=== PATIENT | female | born 1950 | race Asian ===

== ENCOUNTER 2022-04-11 20:30 | Inpatient (IN) ==
[2022-04-11] MEDS ORDERED: SODIUM CHLORIDE 0.9% 1,000 ML IV STA (21:03)
[2022-04-11 22:08] LABS: Basophils % 0.3 % (0.0-0.8); Hematocrit 39.1 VOL% (35.7-47.0); Hemoglobin 12.3 GM/DL (12.0-16.0); Immature Granulocytes % 0.2 %; Immature Granulocytes Absolute 0.01 #; Lymphocytes # 0.9 10*3/uL (1.4-4.0); Lymphocytes % 15.2 % (21.3-54.2); Mean Corpuscular HGB Conc 31.5 GM/DL (32-36); Mean Corpuscular Volume 90.5 FL (87-102); Mean Platelet Volume 10.6 FL (9.6-12.0); Monocytes # 0.5 10*3/uL (0.11-0.8); Monocytes % 8.2 % (1.7-12.7); Neutrophils % 76.1 % (38.7-73.9); Platelet Count 165 T/CUMM (130-400); Red Blood Count 4.32 MC/CUMM (3.8-5.5); Red Cell Distribution Width 13.8 % (9.3-17.3); White Blood Count 6.1 T/CUMM (4-12)
[2022-04-11 22:17] LABS: INR 1.1; PT Patient Result 12.5 SECS (10.1-12.1); Partial Thromboplastin Time 34.5 SECS (23.7-32.9)
[2022-04-11 22:33] LABS: Alanine Aminotransferase 30 U/L (13-56); Albumin 3.3 G/DL (3.4-5.0); Alkaline Phosphatase 61 U/L (45-117); Aspartate Amino Transferase 36 U/L (0-37); Bilirubin,Total < 0.39 MG/DL (0.20-1.00); Blood Urea Nitrogen 13 MG/DL (7-18); Calcium 8.4 MG/DL (8.5-10.1); Carbon Dioxide 30 MMOL/L (21-32); Chloride 104 MMOL/L (98-107); Glucose 124 MG/DL (74-106); Osmolality,Calculated 279.4 MOS/KG (273-304); Potassium 3.5 MMOL/L (3.5-5.1); Sodium 140 MMOL/L (136-145); Total Protein 7.5 G/DL (6.4-8.2)
[2022-04-11] MEDS ORDERED: ONDANSETRON 4 MG/2 ML VIAL ONE (23:44)
[2022-04-11] MEDS ORDERED: PROMETHAZINE 25 MG/1 ML VIAL IM PRN (23:52)
[2022-04-11] MEDS ORDERED: ONDANSETRON 4 MG/2 ML VIAL IV PRN (23:52)
[2022-04-12] MEDS: SODIUM CHLORIDE 0.9% 1,000 ML IV SCH ×4 (06:00→21:10)
[2022-04-12 07:19] LABS: Mucus,Urine Occasional /LPF (Occasional); RBC,Urine 7 /HPF (0-4); Squamous Epithelial Cell,Urine Occasional /HPF (0-10)
[2022-04-12 07:21] LABS: Glucose,Urine (UA) Negative (Negative); Ketones,Urine 5 mg/dL (Negative); Nitrite,Urine Negative (Negative); Protein,Urine Negative (Negative); Urine Appearance Clear (Clear); Urine Color Yellow (Yellow); Urine Specific Gravity 1.031 (1.001-1.035)
[2022-04-12 07:22] LABS: Bilirubin,Urine Negative (Negative); Blood, Urine Small mg/dL (Negative); Urine Urobilinogen < 2.0 eU/dL (<2.0)
[2022-04-12] MEDS ORDERED: GLUCAGON 1 MG VIAL IM PRN (07:42)
[2022-04-12] MEDS ORDERED: DEXTROSE 10% 250 ML BAG IV PRN (07:42)
[2022-04-12] MEDS ORDERED: NON-FORMULARY MEDICATION (Omeprazole 40 mg capsule,delayed release(DR/EC)) PO SCH (08:00)
[2022-04-12 09:07] LABS: Basophils % 0.1 % (0.0-0.8); Hematocrit 38.3 VOL% (35.7-47.0); Hemoglobin 12.3 GM/DL (12.0-16.0); Immature Granulocytes % 0.3 %; Immature Granulocytes Absolute 0.02 #; Lymphocytes # 1.4 10*3/uL (1.4-4.0); Lymphocytes % 19.5 % (21.3-54.2); Mean Corpuscular HGB Conc 32.1 GM/DL (32-36); Mean Corpuscular Volume 88.5 FL (87-102); Mean Platelet Volume 10.8 FL (9.6-12.0); Monocytes # 0.8 10*3/uL (0.11-0.8); Neutrophils % 69.1 % (38.7-73.9); Platelet Count 148 T/CUMM (130-400); Red Blood Count 4.33 MC/CUMM (3.8-5.5); Red Cell Distribution Width 13.6 % (9.3-17.3); White Blood Count 6.9 T/CUMM (4-12)
[2022-04-12 09:28] LABS: Alanine Aminotransferase 29 U/L (13-56); Alkaline Phosphatase 52 U/L (45-117); Aspartate Amino Transferase 36 U/L (0-37); Bilirubin,Total < 0.39 MG/DL (0.20-1.00); Blood Urea Nitrogen 9 MG/DL (7-18); Carbon Dioxide 26 MMOL/L (21-32); Chloride 105 MMOL/L (98-107); Glucose 174 MG/DL (74-106); Osmolality,Calculated 277.7 MOS/KG (273-304); Potassium 3.3 MMOL/L (3.5-5.1); Sodium 138 MMOL/L (136-145); Total Protein 7.5 G/DL (6.4-8.2)
[2022-04-12] MEDS: GABAPENTIN 100 MG CAPSULE PO SCH ×3 (10:35→20:33)
[2022-04-12] MEDS: ENALAPRIL 5 MG TABLET PO SCH (10:35)
[2022-04-12] MEDS: DOCUSATE SODIUM 100 MG CAPSULE PO SCH ×2 (10:35→20:33)
[2022-04-12] MEDS: APIXABAN 5 MG TABLET PO SCH ×2 (10:35→20:34)
[2022-04-12] MEDS: PANTOPRAZOLE 40 MG TABLET PO SCH (10:35)
[2022-04-12] MEDS: INSULIN REGULAR 100 UNIT/ML SUBCUT SCH ×3 (11:46→23:04)
[2022-04-12] MEDS ORDERED: hydrALAZINE 20 MG/1 ML VIAL IV PRN (13:10)
[2022-04-12] MEDS: cefTRIAXone 1,000 MG in SODIUM CHLORIDE 0.9% 100 ML IV SCH (13:34)
[2022-04-12] MEDS: OSELTAMIVIR 75 MG CAPSULE PO SCH ×2 (14:03→21:08)
[2022-04-12] MEDS: BENZONATATE 100 MG CAPSULE PO SCH ×2 (15:52→20:34)
[2022-04-12] MEDS: ACETAMINOPHEN 325 MG TABLET PO PRN (20:34)
[2022-04-13] MEDS: SODIUM CHLORIDE 0.9% 1,000 ML IV SCH ×3 (04:45→18:04)
[2022-04-13 05:34] LABS: Calcium 7.7 MG/DL (8.5-10.1); Osmolality,Calculated 278.5 MOS/KG (273-304); Potassium 3.1 MMOL/L (3.5-5.1)
[2022-04-13] MEDS: INSULIN REGULAR 100 UNIT/ML SUBCUT SCH ×4 (08:34→21:20)
[2022-04-13] MEDS: PANTOPRAZOLE 40 MG TABLET PO SCH (08:35)
[2022-04-13] MEDS: DOCUSATE SODIUM 100 MG CAPSULE PO SCH ×2 (08:35→20:45)
[2022-04-13] MEDS: BENZONATATE 100 MG CAPSULE PO SCH ×3 (08:35→20:45)
[2022-04-13] MEDS: GABAPENTIN 100 MG CAPSULE PO SCH ×3 (08:36→20:45)
[2022-04-13] MEDS ORDERED: POTASSIUM CHLORIDE RIDER 10 MEQ/100 ML PREMIX IV PRN (08:55)
[2022-04-13] MEDS ORDERED: POTASSIUM CHLORIDE 20 MEQ TABLET PO PRN (08:55)
[2022-04-13] MEDS: APIXABAN 5 MG TABLET PO SCH ×2 (09:30→20:45)
[2022-04-13] MEDS: OSELTAMIVIR 75 MG CAPSULE PO SCH ×2 (09:30→20:45)
[2022-04-13] MEDS: ENALAPRIL 5 MG TABLET PO SCH (12:00)
[2022-04-13] MEDS: cefTRIAXone 1,000 MG in SODIUM CHLORIDE 0.9% 100 ML IV SCH (15:10)
[2022-04-14] MEDS: SODIUM CHLORIDE 0.9% 1,000 ML IV SCH ×2 (01:40→19:00)
[2022-04-14 06:22] LABS: Alanine Aminotransferase 24 U/L (13-56); Albumin 2.3 G/DL (3.4-5.0); Alkaline Phosphatase 32 U/L (45-117); Aspartate Amino Transferase 34 U/L (0-37); Bilirubin,Total < 0.39 MG/DL (0.20-1.00); Blood Urea Nitrogen 7 MG/DL (7-18); Carbon Dioxide 25 MMOL/L (21-32); Chloride 112 MMOL/L (98-107); Glucose 146 MG/DL (74-106); Osmolality,Calculated 283.1 MOS/KG (273-304); Potassium 3.5 MMOL/L (3.5-5.1); Sodium 142 MMOL/L (136-145); Total Protein 6.1 G/DL (6.4-8.2)
[2022-04-14 07:02] LABS: Basophils % 0.2 % (0.0-0.8); Eosinophils % 0.2 % (0.00-10.9); Hematocrit 35.6 VOL% (35.7-47.0); Immature Granulocytes % 0.5 %; Immature Granulocytes Absolute 0.02 #; Lymphocytes # 1.9 10*3/uL (1.4-4.0); Lymphocytes % 43.7 % (21.3-54.2); Mean Corpuscular HGB Conc 30.9 GM/DL (32-36); Mean Corpuscular Volume 90.6 FL (87-102); Mean Platelet Volume 11.1 FL (9.6-12.0); Monocytes # 0.4 10*3/uL (0.11-0.8); Monocytes % 9.4 % (1.7-12.7); Red Blood Count 3.93 MC/CUMM (3.8-5.5); Red Cell Distribution Width 13.8 % (9.3-17.3); White Blood Count 4.4 T/CUMM (4-12)
[2022-04-14 07:04] LABS: Platelet Count 113 T/CUMM (130-400)
[2022-04-14] MEDS: INSULIN REGULAR 100 UNIT/ML SUBCUT SCH ×4 (08:29→21:53)
[2022-04-14] MEDS: APIXABAN 5 MG TABLET PO SCH ×2 (08:49→21:53)
[2022-04-14] MEDS: DOCUSATE SODIUM 100 MG CAPSULE PO SCH ×2 (08:50→21:53)
[2022-04-14] MEDS: GABAPENTIN 100 MG CAPSULE PO SCH ×3 (08:50→21:53)
[2022-04-14] MEDS: ENALAPRIL 5 MG TABLET PO SCH (08:50)
[2022-04-14] MEDS: OSELTAMIVIR 75 MG CAPSULE PO SCH ×2 (09:15→22:45)
[2022-04-14] MEDS: BENZONATATE 100 MG CAPSULE PO SCH ×3 (09:15→21:53)
[2022-04-14] MEDS: PANTOPRAZOLE 40 MG TABLET PO SCH (09:15)
[2022-04-14] MEDS: cefTRIAXone 1,000 MG in SODIUM CHLORIDE 0.9% 100 ML IV SCH (14:45)
[2022-04-14] MEDS: ACETAMINOPHEN 325 MG TABLET PO PRN (23:45)
[2022-04-15] MEDS: SODIUM CHLORIDE 0.9% 1,000 ML IV SCH ×4 (00:22→19:15)
[2022-04-15] MEDS: INSULIN REGULAR 100 UNIT/ML SUBCUT SCH ×4 (09:31→21:58)
[2022-04-15] MEDS: PANTOPRAZOLE 40 MG TABLET PO SCH (09:37)
[2022-04-15] MEDS: BENZONATATE 100 MG CAPSULE PO SCH ×3 (09:37→21:58)
[2022-04-15] MEDS: GABAPENTIN 100 MG CAPSULE PO SCH ×3 (09:37→21:58)
[2022-04-15] MEDS: DOCUSATE SODIUM 100 MG CAPSULE PO SCH ×2 (09:37→21:58)
[2022-04-15] MEDS: APIXABAN 5 MG TABLET PO SCH ×2 (09:37→21:58)
[2022-04-15] MEDS: ENALAPRIL 5 MG TABLET PO SCH (09:37)
[2022-04-15] MEDS: OSELTAMIVIR 75 MG CAPSULE PO SCH ×2 (09:38→21:58)
[2022-04-15] MEDS: cefTRIAXone 1,000 MG in SODIUM CHLORIDE 0.9% 100 ML IV SCH (12:36)
[2022-04-16] MEDS: SODIUM CHLORIDE 0.9% 1,000 ML IV SCH ×2 (03:32→23:14)
[2022-04-16] MEDS: INSULIN REGULAR 100 UNIT/ML SUBCUT SCH ×4 (08:54→20:50)
[2022-04-16] MEDS: PANTOPRAZOLE 40 MG TABLET PO SCH (08:55)
[2022-04-16] MEDS: APIXABAN 5 MG TABLET PO SCH ×2 (08:55→20:49)
[2022-04-16] MEDS: DOCUSATE SODIUM 100 MG CAPSULE PO SCH ×2 (08:55→20:49)
[2022-04-16] MEDS: BENZONATATE 100 MG CAPSULE PO SCH ×3 (08:55→20:49)
[2022-04-16] MEDS: ENALAPRIL 5 MG TABLET PO SCH (08:55)
[2022-04-16] MEDS: GABAPENTIN 100 MG CAPSULE PO SCH ×3 (08:55→20:49)
[2022-04-16] MEDS: OSELTAMIVIR 75 MG CAPSULE PO SCH ×2 (11:53→20:50)
[2022-04-16] MEDS: cefTRIAXone 1,000 MG in SODIUM CHLORIDE 0.9% 100 ML IV SCH (14:56)
[2022-04-17 05:03] LABS: Basophils % 0.4 % (0.0-0.8); Eosinophils # 0.1 10*3/uL (0.0-0.87); Eosinophils % 1.7 % (0.00-10.9); Hemoglobin 10.9 GM/DL (12.0-16.0); Immature Granulocytes Absolute 0.05 #; Lymphocytes # 2.1 10*3/uL (1.4-4.0); Lymphocytes % 40.2 % (21.3-54.2); Mean Corpuscular HGB Conc 31.1 GM/DL (32-36); Mean Corpuscular Volume 89.3 FL (87-102); Mean Platelet Volume 10.9 FL (9.6-12.0); Monocytes # 0.5 10*3/uL (0.11-0.8); Monocytes % 8.7 % (1.7-12.7); Platelet Count 147 T/CUMM (130-400); Red Blood Count 3.92 MC/CUMM (3.8-5.5); Red Cell Distribution Width 13.7 % (9.3-17.3); White Blood Count 5.2 T/CUMM (4-12)
[2022-04-17 05:34] LABS: Albumin 2.3 G/DL (3.4-5.0); Bilirubin,Total 0.4 MG/DL (0.20-1.00); Calcium 8.2 MG/DL (8.5-10.1); Potassium 3.3 MMOL/L (3.5-5.1); Total Protein 6.7 G/DL (6.4-8.2)
[2022-04-17] MEDS: SODIUM CHLORIDE 0.9% 1,000 ML IV SCH ×2 (05:58→20:41)
[2022-04-17] MEDS: INSULIN REGULAR 100 UNIT/ML SUBCUT SCH ×4 (07:30→20:42)
[2022-04-17] MEDS ORDERED: MAGNESIUM SULF RIDER 2 GM/50 ML PREMIX IV PRN (08:23)
[2022-04-17] MEDS ORDERED: MAGNESIUM SULF RIDER 4 GM/100 ML PREMIX IV PRN (08:23)
[2022-04-17] MEDS: GABAPENTIN 100 MG CAPSULE PO SCH ×3 (08:41→20:41)
[2022-04-17] MEDS: PANTOPRAZOLE 40 MG TABLET PO SCH (08:41)
[2022-04-17] MEDS: BENZONATATE 100 MG CAPSULE PO SCH ×3 (08:41→20:41)
[2022-04-17] MEDS: OSELTAMIVIR 75 MG CAPSULE PO SCH ×2 (08:41→20:41)
[2022-04-17] MEDS: DOCUSATE SODIUM 100 MG CAPSULE PO SCH ×2 (08:41→20:41)
[2022-04-17] MEDS: APIXABAN 5 MG TABLET PO SCH ×2 (08:41→20:41)
[2022-04-17] MEDS: cefTRIAXone 1,000 MG in SODIUM CHLORIDE 0.9% 100 ML IV SCH (08:42)
[2022-04-17] MEDS: ENALAPRIL 5 MG TABLET PO SCH (08:47)
[2022-04-18] MEDS: INSULIN REGULAR 100 UNIT/ML SUBCUT SCH ×2 (10:06→12:56)
[2022-04-18] MEDS: DOCUSATE SODIUM 100 MG CAPSULE PO SCH (10:14)
[2022-04-18] MEDS: ENALAPRIL 5 MG TABLET PO SCH (10:14)
[2022-04-18] MEDS: APIXABAN 5 MG TABLET PO SCH (10:14)
[2022-04-18] MEDS: BENZONATATE 100 MG CAPSULE PO SCH (10:14)
[2022-04-18] MEDS: GABAPENTIN 100 MG CAPSULE PO SCH (10:14)
[2022-04-18] MEDS: PANTOPRAZOLE 40 MG TABLET PO SCH (10:14)
[2022-04-18] MEDS: cefTRIAXone 1,000 MG in SODIUM CHLORIDE 0.9% 100 ML IV SCH (10:19)
[2022-04-18 12:25] VITALS: BP 163/81
== END 2022-04-18 14:02 | disposition home or self-care (01) | DRG 153 ==
LOC: N.EDINP 20:30 → N.ED 20:30 → N.EDINP 04-12 12:06 → N.2W 04-12 12:13 → N.5E 04-14 18:04 → N.TELEN 04-17 03:53
PROVIDERS: ADMIT Family Medicine; ATTEND Family Medicine